=== PATIENT | female | born 1950 | race Two or more races ===

== ENCOUNTER 2018-11-04 08:16 | Emergency (ER) | payer OTHER ==
[~2018-11-04] VITALS: Ht 160 cm; Wt 48.5 kg
[2018-11-04] MEDS ORDERED: NORVASC5 MG (08:39)
[2018-11-04] MEDS ORDERED: ZOLPIDEM TARTRA10 MG (08:40)
[2018-11-04] MEDS ORDERED: ALPRAZOLAM0.5 MG (08:40)
== END 2018-11-04 18:35 | disposition home or self-care (01) ==
LOC: ER 08:16
DX: K52.89 Other specified noninfective gastroenteritis and colitis (principal); K57.32 Diverticulitis of large intestine without perforation or abscess without bleeding